=== PATIENT | male | born 1990 | race Caucasian/White ===

== ENCOUNTER 2020-02-14 10:57 | Emergency (ER) | payer OTHER ==
[~2020-02-14] VITALS: Ht 182.9 cm; Wt 99.8 kg
[2020-02-14] MEDS ORDERED: BUDE6HFA INH (11:19)
[2020-02-14] MEDS ORDERED: ALBU90OI INH (11:19)
[2020-02-14] MEDS ORDERED: CODEINE-GUAIFE120 ML PO (11:19)
[2020-02-14] MEDS ORDERED: Ultram50 MG PO (11:43)
[2020-02-14] MEDS ORDERED: TRAZ50 PO (11:43)
[2020-02-14] MEDS ORDERED: IBUP400 PO (11:44)
== END 2020-02-14 12:12 | disposition home or self-care (01) ==
LOC: ER 10:57
DX: M79.601 Pain in right arm (principal); G89.29 Other chronic pain; Z87.01 Personal history of pneumonia (recurrent); Z79.899 Other long term (current) drug therapy; Z87.891 Personal history of nicotine dependence
CPT/HCPCS: 99283